=== PATIENT | male | born 1955 | race Caucasian/White ===

== ENCOUNTER 2017-01-11 08:16 | Emergency (ER) | payer OTHER ==
[2017-01-11 08:39] LABS: BILIRUBIN NEGATIVE (NEGATIVE); BLOOD TRACE-LYSED Ery/uL (NEGATIVE); CLARITY CLEAR (CLEAR); COLOR YELLOW (YELLOW); GLUCOSE (U) NORMAL (NORMAL); KETONE (U) NEGATIVE (NEGATIVE); LEUKOCYTES NEGATIVE Leu/uL (NEGATIVE); NITRITE NEGATIVE (NEGATIVE); PROTEIN 1+ mg/dL (NEGATIVE); SPECIFIC GRAVITY <=1.005 (1.001-1.030); UROBILINOGEN 0.2 mg/dL (0.2-1.0); pH 6.5 (5.0-9.0)
[2017-01-11 08:42] LABS: SQUAMOUS EPITHELIAL CELLS RARE; URINARY RBC RARE; URINARY WBC RARE
[2017-01-11 09:11] LABS: BASOPHIL 0.2 % (0-2); EOSINOPHIL 0.8 % (0-5); HGB 13.1 g/dl (13.2-18.0); LYMPHOCYTE 11.2 % (15-48); MCH 29.8 pg (25.0-31.0); MCHC 33.6 g/dL (32.0-36.0); MCV 88.8 fL (78.0-100.0); MONOCYTE 14.2 % (0-12); MPV 9.7 fL (6.0-9.5); NEUTROPHIL 73.6 % (41-80); PLT 241 K/uL (150-400); RBC 4.39 M/uL (4.70-6.00); RDW 14.6 % (11.5-14.0); WBC 9.1 K/uL (4.0-10.5)
[2017-01-11 09:26] LABS: INR 1.08 (0.9-1.2); PROTHROMBIN TIME 13.6 SECONDS (11.7-14.0); PTT 30.3 SECONDS (23.2-31.4)
[2017-01-11 09:34] LABS: ALBUMIN 3.3 g/dL (3.4-4.8); BILIRUBIN - TOTAL 0.4 mg/dL (0.1-1.0); CREATININE 0.9 mg/dL (0.7-1.2); GLOBULIN (CALCULATION) 3.5 g/dL (2.2-4.2); POTASSIUM 3.7 mmol/L (3.5-5.1); TOTAL PROTEIN 6.8 g/dL (6.4-8.3)
== END 2017-01-11 10:02 | disposition home or self-care (01) ==
LOC: FER 08:16
PROVIDERS: Emergency Medicine
DX: R53.1 Weakness (principal); R53.83 Other fatigue; R74.8 Abnormal levels of other serum enzymes; R50.9 Fever, unspecified; R51 Headache; R11.0 Nausea; H53.9 Unspecified visual disturbance; R39.198 Other difficulties with micturition; M79.1 Myalgia; I25.10 Atherosclerotic heart disease of native coronary artery without angina pectoris; G47.33 Obstructive sleep apnea (adult) (pediatric); Z79.82 Long term (current) use of aspirin; Z79.899 Other long term (current) drug therapy; Z85.46 Personal history of malignant neoplasm of prostate; Z98.61 Coronary angioplasty status; Z90.79 Acquired absence of other genital organ(s)
CPT/HCPCS: 36415; 71010; 80053; 81001; 84484; 85025; 85610; 85730; 87450; 87804; 87899; 93005

== ENCOUNTER 2017-01-15 11:13 | Emergency (ER) | payer OTHER ==
[2017-01-15 12:13] LABS: BASOPHIL 0.2 % (0-2); EOSINOPHIL 0.9 % (0-5); HCT 37.8 % (42.0-52.0); HGB 12.6 g/dl (13.2-18.0); LYMPHOCYTE 11.2 % (15-48); MCH 29.6 pg (25.0-31.0); MCHC 33.3 g/dL (32.0-36.0); MCV 88.7 fL (78.0-100.0); MONOCYTE 15.4 % (0-12); MPV 9.6 fL (6.0-9.5); NEUTROPHIL 72.3 % (41-80); PLT 345 K/uL (150-400); RBC 4.26 M/uL (4.70-6.00); RDW 14.4 % (11.5-14.0); WBC 10.1 K/uL (4.0-10.5)
[2017-01-15 12:22] LABS: ALBUMIN 3.4 g/dL (3.4-4.8); BILIRUBIN - TOTAL 0.4 mg/dL (0.1-1.0); CREATININE 0.8 mg/dL (0.7-1.2); GLOBULIN (CALCULATION) 3.7 g/dL (2.2-4.2); TOTAL PROTEIN 7.1 g/dL (6.4-8.3)
[2017-01-15 16:51] LABS: BILIRUBIN NEGATIVE (NEGATIVE); BLOOD TRACE-INTACT Ery/uL (NEGATIVE); CLARITY CLEAR (CLEAR); COLOR YELLOW (YELLOW); GLUCOSE (U) NORMAL (NORMAL); KETONE (U) NEGATIVE (NEGATIVE); LEUKOCYTES NEGATIVE Leu/uL (NEGATIVE); NITRITE NEGATIVE (NEGATIVE); PROTEIN 1+ mg/dL (NEGATIVE); UROBILINOGEN 0.2 mg/dL (0.2-1.0); pH 6.5 (5.0-9.0)
[2017-01-15 17:10] LABS: BACTERIA 1+
== END 2017-01-15 18:21 | disposition home or self-care (01) ==
LOC: FER 11:13
PROVIDERS: Emergency Medicine
DX: M25.50 Pain in unspecified joint (principal); R19.00 Intra-abdominal and pelvic swelling, mass and lump, unspecified site; R53.1 Weakness; R51 Headache; D18.00 Hemangioma unspecified site; L57.0 Actinic keratosis; R06.02 Shortness of breath; R20.2 Paresthesia of skin; I25.10 Atherosclerotic heart disease of native coronary artery without angina pectoris; Z85.46 Personal history of malignant neoplasm of prostate; Z90.79 Acquired absence of other genital organ(s)
CPT/HCPCS: 36415; 71020; 80053; 81001; 84443; 84484; 85025; 85651; 86617; 93005; J2270; Q9967